=== PATIENT | male | born 1980 | race Caucasian/White ===

== ENCOUNTER 2018-09-08 07:41 | Observation (INO) | payer BC, SELFPAY ==
[2018-09-08] MEDS ORDERED: Ketorolac Tromethamine 30 MG/ML VIAL ONE (08:54)
[2018-09-08] MEDS ORDERED: Levofloxacin 500 mg/D5W 100 ml Premix Bag ONE (08:54)
--- NOTE | 2018-09-08 09:36 | HP ---
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 He has type 1 diabetes since he was 5 years old. He has had 2 episodes of pancreatitis in the past, not obtaining ultrasound. On this occasion, presented to [facility] after 2 days of abdominal pain, back radiation. Pain is epigastric. His white count was 8 and hemoglobin 14. Sodium 138, potassium 3.9, BUN 8, creatinine 0.5, bilirubin 2.5. ALT and AST were normal. Lipase 1289. He presents for evaluation, transferred from [facility] this morning. ALLERGIES: NONE. SOCIAL HISTORY: Tobacco, none. Alcohol, rarely. The patient is single, lives alone. Works at [employer] MEDICATIONS: Insulin Lantus 30 units a.m. and sliding scale insulin through the day. PAST SURGICAL HISTORY: ORIF leg. REVIEW OF SYSTEMS: Ten-point noncontributory. PHYSICAL EXAMINATION: VITAL SIGNS: Weight 175 pounds, BMI 21, temperature 98.1 degrees, heart rate 96, respiratory rate 17, and blood pressure 136/94. HEENT: Unremarkable. Sclerae nonicteric. LUNGS: Clear to auscultation. CARDIAC: Regular rate and rhythm without murmur or gallop. ABDOMEN: Soft. Tenderness in right upper quadrant and epigastrium. Mild guarding. EXTREMITIES: Unremarkable. ASSESSMENT/PLAN: 1. Biliary pancreatitis. Recommend laparoscopic video cholecystectomy and cholangiograms. I have talked to him about the possibility of positive cholangiogram that he might need ERCP, sphincterotomy and stone extraction with Dr. Harish Cain who was on-call. I talked to Dr. Harish Cain about him. I think it is unlikely that he will have choledocholithiasis. I have appraised him for the risk of laparoscopic cholecystectomy, ERCP, infection, bleeding, reoperation, perforation of the intestines, pancreatitis, and chronic pain. He consents. 2. Type 1 diabetes mellitus. Job ID: [id number]
[2018-09-08] MEDS ORDERED: Iothalamate Meglumine 60% 50 ML VIAL FS ONE (09:55)
[2018-09-08] MEDS ORDERED: Bupivacaine HCl 0.5%/Epinephrine 1:200,000/PF 30 ml Vial ONE (09:55)
[2018-09-08 09:58] LABS: Hemoglobin A1c 7.1 % (4.0-6.0)
[2018-09-08] MEDS ORDERED: Fentanyl 100 MCG/2 ML VIAL ONE ×4 (10:01→11:41)
[2018-09-08 10:08] LABS: ALT (SGPT) 13 U/L (8-55); AST (SGOT) 16 U/L (5-34); Albumin 3.2 g/dL (3.5-5.0); Alkaline Phosphatase 57 U/L (40-150); Bilirubin, Direct 0.8 mg/dL (0.1-0.3); Bilirubin, Total 2.7 mg/dL (0.2-1.2); Lipase 142 U/L (8-78); Protein, Total 5.7 g/dL (6.0-8.3)
--- NOTE | 2018-09-08 11:50 | RAD ---
OPERATIVE CHOLANGIOGRAM 1 VIEW: HISTORY: Intraoperative film. FINDINGS: These show filling of a nondilated common duct without signs of any filling defects. IMPRESSION: Unremarkable operative cholangiogram. POS: [facility]
[2018-09-08] MEDS ORDERED: Promethazine HCl 25 MG/ML VIAL ONE (12:08)
[2018-09-08] MEDS ORDERED: Ondansetron PF 4 MG/2 ML Vial IVP PRN (12:12)
[2018-09-08] MEDS ORDERED: Ondansetron ODT 4 MG TAB PO PRN (12:12)
[2018-09-08] MEDS ORDERED: Dextrose 5% in Water 1,000 ML IV PRN (12:12)
[2018-09-08] MEDS ORDERED: HumaLOG 300 UNITS/3 ML VIAL SC PRN (12:12)
[2018-09-08] MEDS ORDERED: Dextrose 50% Abboject 50 ML SYRINGE SLOW IVP PRN (12:12)
[2018-09-08 12:26] LABS: Syphilis Antibody Nonreactive (Nonreactive); Syphilis Antibody Index 0.04 S/CO (<1.00 Non-Reactive)
[2018-09-08] MEDS ORDERED: Fentanyl 100 MCG/2 ML VIAL SLOW IVP PRN (12:26)
[2018-09-08] MEDS ORDERED: Ibuprofen 600 MG TAB PO PRN (12:26)
[2018-09-08] MEDS ORDERED: Ketorolac Tromethamine 30 MG/ML VIAL IVP PRN (12:26)
[2018-09-08] MEDS ORDERED: traMADol HCl 50 MG TAB PO PRN (12:26)
[2018-09-08] MEDS ORDERED: Acetaminophen 1,000 MG in Premix Bag 1 BAG IVPB PRN (12:26)
[2018-09-08 12:29] LABS: HBSAB Concentration 2.61 mIU/mL; HIV (1/2) Antibody/Antigen Non-Reactive (NonReactive); Hep A IgM AB Non-Reactive (NonReactive); Hep A IgM S/CO 0.15 S/CO (0-0.79); Hep B Core Total Ab Non-Reactive (NonReactive); Hep B Core Total Index 0.09 S/CO (0-0.79); Hep B Surf AB Non-Reactive (NonReactive); Hep B Surf Ag Non-Reactive S/CO (NonReactive); Hep C IgG Ab Non-Reactive (NonReactive); Hep C Index 0.11 S/CO (0-0.79)
--- NOTE | 2018-09-08 13:02 | OP ---
DATE OF PROCEDURE: 09/08/2018 PREOPERATIVE DIAGNOSES: Cholecystitis, cholelithiasis, biliary pancreatitis. Note, lipase elevated to 1200; [facility], down to less than 100. [facility], bilirubin 2.4; [facility] 2.7. [facility], transaminase is normal. PROCEDURE PERFORMED: Laparoscopic video cholecystectomy, negative intraoperative cholangiogram using fluoroscopy. ANESTHESIA: General, local 0.5% Marcaine with epinephrine 30 mL. Note, surgeon sustained right index finger needlestick and protocol followed with patient blood draw and surgeon blood draw. Needlestick sustained due to safety apparatus on 22-gauge needles, where the needle protruded through the plastic safety apparatus predisposing to medical personnel injury. DESCRIPTION OF PROCEDURE: The patient was taken to the operating room, where under general anesthesia, abdomen was clipped of hair, prepared with ChloraPrep and draped in routine fashion. Local anesthetic was infiltrated in the skin and subcutaneous tissue about each port site. Infraumbilical incision was made. Pneumoperitoneum to 15 mmHg was obtained with a Veress needle, replaced with a 5 port. Right subxiphoid incision was made and 11 port placed, right subcostal incision was made, midclavicular entrance line, and 5 port was placed. Liver appeared to be normal. Fundus of the gallbladder was grasped at retracted cephalad. Gallbladder slightly distended, wall edematous. There was slight amount of free fluid, and the abdominal cavity aspirated. Infundibulum grasped and reflected laterally. Cystic artery and duct were dissected free. Critical view obtained. Cystic artery doubly clipped proximally. Cystic duct singly clipped on the gallbladder side. Opening was made in the cystic duct. Cholangiocatheter was inserted. Obtained cholangiograms using contrast after administration of glucagon intravenously by Anesthesia. Fluoroscopy revealed free flow of contrast. The duodenum without filling defects in the small caliber, common hepatic, and common bile duct, left and right hepatic ducts. Cholangiocatheter removed. Cystic duct doubly clipped and our cystic artery and duct divided. Gallbladder dissected free from liver bed obtaining good hemostasis prior to division of the final peritoneal attachments. Gallbladder and contents were removed, submitted to Pathology. Good hemostasis noted. Irrigant and pneumoperitoneum were evacuated. All instruments were removed. All skin incisions were approximated with interrupted subdermal 4-0 Monocryl and [place] glue applied. Job ID: [id number]
[2018-09-08] MEDS ORDERED: Morphine 4 MG/ML VIAL ONE (15:20)
[2018-09-08] MEDS ORDERED: PROPOFOL 200 MG/20 ML VIAL ONE (15:30)
[2018-09-08] MEDS ORDERED: Succinylcholine Chloride 20 MG/ML 10 ml SYRINGE FS ONE (15:30)
[2018-09-08] MEDS ORDERED: PHENYLEPHRINE-NS 100 MCG/ML 10 ML SYRINGE ONE (15:30)
[2018-09-08] MEDS ORDERED: Ondansetron PF 4 MG/2 ML Vial ONE (15:30)
[2018-09-08] MEDS ORDERED: Lidocaine 1% PF 5 ML VIAL ONE (15:30)
[2018-09-08] MEDS ORDERED: Rocuronium Bromide 10 MG/ML (10ML VIAL) ONE (15:30)
[2018-09-08] MEDS ORDERED: Glycopyrrolate 0.2 MG/ML 5 ML SYRINGE ONE (15:30)
[2018-09-08] MEDS ORDERED: Morphine 2 MG/ML SYRINGE ONE ×3 (15:44→17:02)
[2018-09-08] MEDS: Lactated Ringer's 1,000 ML IV SCH (18:29)
[2018-09-08 18:41] VITALS: BMI 22.4
[2018-09-08] MEDS: traMADol HCl 50 MG TAB PO PRN (20:52)
[2018-09-08] MEDS: Acetaminophen 500 MG TAB PO PRN (20:53)
[2018-09-08] MEDS: Famotidine 20 MG TAB PO SCH (20:54)
[2018-09-08] MEDS ORDERED: Enoxaparin Sodium 40 MG/0.4 ML SYRINGE SC SCH (21:00)
[2018-09-09] MEDS: traMADol HCl 50 MG TAB PO PRN ×2 (02:22→10:09)
[2018-09-09] MEDS: Acetaminophen 500 MG TAB PO PRN (02:22)
[2018-09-09] MEDS: Lactated Ringer's 1,000 ML IV SCH ×2 (02:23→18:10)
[2018-09-09 05:19] LABS: #Basophils 0.1 thou/uL (0.0-0.2); #Eosinphils 0.2 thou/uL (0.0-0.7); #Lymphocytes 1.4 thou/uL (1.20-3.40); #Monocytes 0.6 thou/uL (0.11-0.59); #Neutrophils 5.2 thou/uL (1.40-6.50); %Basophils 0.8 % (0.0-1.0); %Eosinophils 2.5 % (0.0-10.0); %Lymphocytes 18.8 % (21.0-51.0); %Monocytes 8.2 % (0.0-10.0); %Neutrophils 69.7 % (42.0-75.0); Hemoglobin 13.5 g/dL (14.0-18.0); Mean Corpuscular HGB CONC 35.9 g/dL (32.0-36.0); Mean Corpuscular Hemoglobin 35.4 pg (27.0-31.0); Mean Corpuscular Volume 98.8 fL (78.0-98.0); Mean Platelet Volume 6.6 fL (7.4-10.4); Platelet Count 275 thou/uL (130-400); Red Blood Cell (RBC) Count 3.82 mill/uL (4.70-6.10); White Blood Cell (WBC) Count 7.4 thou/uL (4.8-10.8)
[2018-09-09 05:43] LABS: ALT (SGPT) 68 U/L (8-55); AST (SGOT) 138 U/L (5-34); Albumin 3.2 g/dL (3.5-5.0); Alkaline Phosphatase 174 U/L (40-150); Bilirubin, Direct 0.7 mg/dL (0.1-0.3); Bilirubin, Total 3.5 mg/dL (0.2-1.2); Lipase 102 U/L (8-78); Protein, Total 5.7 g/dL (6.0-8.3)
[2018-09-09] MEDS ORDERED: Insulin Glargine 30 UNITS in Pre-Filled Syringe 1 EACH SC SCH (09:00)
[2018-09-09] MEDS: Famotidine 20 MG TAB PO SCH (09:43)
[2018-09-09 10:14] VITALS: BP 116/73; TEMP 98.1
== END 2018-09-09 10:15 | disposition home or self-care (01) ==
LOC: SDC 07:41 → SJJU 16:28
PROVIDERS: ADMIT Specialist; ATTEND Specialist
PROC: 0FT44ZZ Resection of Gallbladder, Percutaneous Endoscopic Approach (ICD-10-PCS; principal; 2018-09-08)
PROC: BF131ZZ Fluoroscopy of Gallbladder and Bile Ducts using Low Osmolar Contrast (ICD-10-PCS; 2018-09-08)
DX: K80.10 Calculus of gallbladder with chronic cholecystitis without obstruction (principal); E10.9 Type 1 diabetes mellitus without complications; F17.290 Nicotine dependence, other tobacco product, uncomplicated; Z79.4 Long term (current) use of insulin
CPT/HCPCS: 36415; 36416; 47532; 80076; 83036; 83690; 85025; 86704; 86706; 86709; 86780; 86803; 87340; 87389; 88304; 96360; 96361; 96372; G0378; J0131; J0670; J1610; J1650; J1825; J1885; J1956; J2001; J2270; J2405; J2550; J2704; J3010; Q9961

== ENCOUNTER 2021-10-08 08:47 | Inpatient (IN) | payer BC ==
[2021-10-08 10:15] VITALS: BMI 20.7
[2021-10-08] MEDS ORDERED: Dextrose 50% Abboject 50 ML SYRINGE ONE (10:22)
[2021-10-08] MEDS ORDERED: Dextrose 5% in Water 1,000 ML IV PRN ×2 (11:01→11:37)
[2021-10-08] MEDS ORDERED: Dextrose 50% Abboject 50 ML SYRINGE SLOW IVP PRN ×2 (11:01→11:37)
[2021-10-08] MEDS ORDERED: Lorazepam 1 MG TAB PO PRN (11:37)
[2021-10-08] MEDS ORDERED: Ondansetron ODT 4 MG TAB PO PRN ×2 (11:37)
[2021-10-08] MEDS ORDERED: HYDROcodone/Acetaminophen 5/325 mg Tablet PO PRN (11:37)
[2021-10-08] MEDS ORDERED: Acetaminophen 325 MG TAB PO PRN (11:37)
[2021-10-08] MEDS ORDERED: Lorazepam 2 MG/ML VIAL IM PRN (11:37)
[2021-10-08] MEDS ORDERED: Electrolyte Replacement Protocol 1 EACH FS PRN (11:45)
[2021-10-08] MEDS ORDERED: Sodium Chloride 0.9% 1,000 ML IV SCH (12:00)
[2021-10-08] MEDS ORDERED: Ondansetron PF 4 MG/2 ML Vial ONE (12:07)
[2021-10-08] MEDS ORDERED: Lidocaine 1% PF 5 ML VIAL ONE (12:07)
[2021-10-08] MEDS ORDERED: PHENYLEPHRINE-NS 100 MCG/ML 10 ML SYRINGE ONE (12:07)
[2021-10-08] MEDS ORDERED: PROPOFOL 200 MG/20 ML VIAL ONE (12:07)
[2021-10-08] MEDS: Thiamine HCl 200 MG/2 ML VIAL SLOW IVP SCH (12:09)
[2021-10-08 12:13] LABS: #Eosinphils 0.1 thou/uL (0.0-0.7); #Lymphocytes 1.1 thou/uL (1.20-3.40); #Monocytes 0.9 thou/uL (0.11-0.59); #Neutrophils 9.9 thou/uL (1.40-6.50); %Basophils 0.4 % (0.0-1.0); %Eosinophils 1.1 % (0.0-10.0); %Lymphocytes 9.2 % (21.0-51.0); %Monocytes 7.1 % (0.0-10.0); %Neutrophils 82.2 % (42.0-75.0); Hemoglobin 11.8 g/dL (14.0-18.0); Mean Corpuscular Hemoglobin 35.1 pg (27.0-31.0); Mean Platelet Volume 5.9 fL (7.4-10.4); Platelet Count 324 thou/uL (130-400); RBC Distribution Width 10.3 % (11.5-14.5); Red Blood Cell (RBC) Count 3.36 mill/uL (4.70-6.10)
[2021-10-08 12:34] LABS: ALT (SGPT) 37 U/L (8-55); AST (SGOT) 80 U/L (5-34); Albumin 2.7 g/dL (3.5-5.0); Alkaline Phosphatase 96 U/L (40-110); Anion Gap 11 mmol/L (10-20); BUN (Urea Nitrogen) 6 mg/dL (8.9-20.6); Calc. Creatinine Clearance 143 mL/min (70-130); Calcium 8.3 mg/dL (7.8-10.44); Carbon Dioxide 26 mmol/L (22-29); Chloride 105 mmol/L (98-107); Globulin 3.2 g/dL (2.4-3.5); Glucose 135 mg/dL (70-105); Potassium 3.6 mmol/L (3.5-5.1); Protein, Total 5.9 g/dL (6.0-8.3); Sodium 138 mmol/L (136-145)
[2021-10-08 12:47] LABS: Lactic Acid 0.7 mmol/L (0.5-2.2)
[2021-10-08] MEDS ORDERED: Cefepime 2 GM in Sodium Chloride 0.9% 100 ML IVPB SCH (13:00)
[2021-10-08 13:30] LABS: Magnesium 1.6 mg/dL (1.6-2.6); Phosphorus 3.2 mg/dL (2.3-4.7)
[2021-10-08] MEDS ORDERED: VANCOMYCIN 2 GRAM/500 ML BAG 2 GM in Premix Bag 1 BAG IVPB SCH (14:00)
[2021-10-08] MEDS ORDERED: Midazolam HCl 2 mg/2 ml Vial ONE (14:49)
[2021-10-08] MEDS ORDERED: Dexmedetomidine 200 MCG/2 ML VIAL ONE (14:50)
[2021-10-08] MEDS ORDERED: Fentanyl 100 MCG/2 ML VIAL ONE (14:50)
[2021-10-08] MEDS ORDERED: Promethazine HCl 25 MG/ML VIAL IM PRN (16:01)
[2021-10-08] MEDS ORDERED: Promethazine HCl 25 MG/ML VIAL IVPB PRN (16:01)
[2021-10-08] MEDS ORDERED: HYDROmorphone 2 MG/ML VIAL SLOW IVP PRN (16:01)
[2021-10-08] MEDS ORDERED: PACU-Morphine 4MG/ML VIAL SLOW IVP PRN (16:01)
[2021-10-08] MEDS ORDERED: Ondansetron HCl/PF 4 MG/2 ML Vial IVP PRN (16:01)
[2021-10-08] MEDS ORDERED: Morphine Sulfate 2 MG/ML SYRINGE SLOW IVP PRN (16:01)
[2021-10-08] MEDS ORDERED: Meperidine HCl/PF 25 MG/ML VIAL SLOW IVP PRN (16:01)
[2021-10-08] MEDS: chlordiazePOXIDE HCl 25 MG CAP PO SCH ×2 (16:43→20:07)
[2021-10-08] MEDS: Cefepime 2 GM in Sodium Chloride 0.9% 100 ML IVPB SCH (17:15)
[2021-10-08] MEDS: VANCOMYCIN 2 GRAM/500 ML BAG 2 GM in Premix Bag 1 BAG IVPB SCH (17:54)
[2021-10-08] MEDS: Atorvastatin Calcium 10 MG TAB PO SCH (20:07)
[2021-10-08] MEDS: traMADol HCl 50 MG TAB PO PRN (20:11)
[2021-10-08] MEDS ORDERED: Non-Formulary Item 1 EACH (Insulin Aspart [Novolog] 100 UNIT/ML Vial) SQ SCH (21:00)
[2021-10-08] MEDS ORDERED: Vancomycin 1 GM in Premix Bag 1 BAG IVPB SCH (21:00)
[2021-10-09] MEDS ORDERED: Magnesium 2 GM/50 ML(in water) 2 GM in Premix Bag 1 BAG IVPB SCH (00:30)
[2021-10-09] MEDS: Cefepime 2 GM in Sodium Chloride 0.9% 100 ML IVPB SCH ×2 (04:04→18:00)
[2021-10-09] MEDS: HumaLOG 300 UNITS/3 ML VIAL SC PRN ×3 (04:05→18:03)
[2021-10-09] MEDS: VANCOMYCIN 2 GRAM/500 ML BAG 2 GM in Premix Bag 1 BAG IVPB SCH ×2 (04:34→18:44)
[2021-10-09] MEDS: traMADol HCl 50 MG TAB PO PRN ×3 (05:29→13:21)
[2021-10-09] MEDS: Multivit, Therapeutic 1 TAB PO SCH (08:30)
[2021-10-09] MEDS: chlordiazePOXIDE HCl 25 MG CAP PO SCH ×3 (08:30→19:53)
[2021-10-09] MEDS: Folic Acid 1 MG TAB PO SCH (08:30)
[2021-10-09] MEDS: Insulin Glargine 30 UNITS/0.3 ML VIAL SC SCH (08:30)
[2021-10-09] MEDS: Morphine 2 MG/ML VIAL SLOW IVP PRN ×3 (10:13→19:53)
[2021-10-09] MEDS ORDERED: Lorazepam 1 MG TAB PO PRN (11:38)
[2021-10-09] MEDS: Thiamine HCl 200 MG/2 ML VIAL SLOW IVP SCH (11:43)
[2021-10-09] MEDS: Atorvastatin Calcium 10 MG TAB PO SCH (19:53)
[2021-10-10] MEDS: Morphine 2 MG/ML VIAL SLOW IVP PRN ×4 (03:01→20:36)
[2021-10-10] MEDS: Cefepime 2 GM in Sodium Chloride 0.9% 100 ML IVPB SCH ×2 (04:41→17:17)
[2021-10-10 05:21] LABS: Vancomycin, Trough 19.8 ug/mL
[2021-10-10] MEDS: VANCOMYCIN 2 GRAM/500 ML BAG 2 GM in Premix Bag 1 BAG IVPB SCH ×2 (06:07→17:53)
[2021-10-10] MEDS: Folic Acid 1 MG TAB PO SCH (09:57)
[2021-10-10] MEDS: chlordiazePOXIDE HCl 25 MG CAP PO SCH ×3 (09:57→20:38)
[2021-10-10] MEDS: Insulin Glargine 30 UNITS/0.3 ML VIAL SC SCH (09:57)
[2021-10-10] MEDS: Multivit, Therapeutic 1 TAB PO SCH (09:57)
[2021-10-10] MEDS: HumaLOG 300 UNITS/3 ML VIAL SC PRN ×3 (12:41→20:43)
[2021-10-10] MEDS: Thiamine HCl 200 MG/2 ML VIAL SLOW IVP SCH (12:41)
[2021-10-10] MEDS: Acetaminophen 500 MG TAB PO PRN (15:37)
[2021-10-10] MEDS: Atorvastatin Calcium 10 MG TAB PO SCH (20:38)
[2021-10-10] MEDS: Lorazepam 1 MG TAB PO PRN (23:26)
[2021-10-11] MEDS: Morphine 2 MG/ML VIAL SLOW IVP PRN ×5 (00:43→20:04)
[2021-10-11] MEDS: traMADol HCl 50 MG TAB PO PRN ×2 (03:48→08:24)
[2021-10-11] MEDS ORDERED: Cefepime 2 GM in Sodium Chloride 0.9% 100 ML IVPB SCH (05:00)
[2021-10-11] MEDS: HumaLOG 300 UNITS/3 ML VIAL SC PRN ×2 (05:06→12:29)
[2021-10-11] MEDS: Cefepime 2 GM in Sodium Chloride 0.9% 100 ML IVPB SCH ×2 (05:25→15:53)
[2021-10-11] MEDS: VANCOMYCIN 2 GRAM/500 ML BAG 2 GM in Premix Bag 1 BAG IVPB SCH (06:38)
[2021-10-11] MEDS: Acetaminophen 500 MG TAB PO PRN ×2 (06:45→15:48)
[2021-10-11] MEDS: chlordiazePOXIDE HCl 25 MG CAP PO SCH ×3 (08:24→20:04)
[2021-10-11] MEDS: Folic Acid 1 MG TAB PO SCH (08:25)
[2021-10-11] MEDS: Insulin Glargine 30 UNITS/0.3 ML VIAL SC SCH (08:25)
[2021-10-11] MEDS: Multivit, Therapeutic 1 TAB PO SCH (08:25)
[2021-10-11] MEDS: Thiamine 100 MG TAB PO SCH (12:29)
[2021-10-11 17:26] LABS: Vancomycin, Trough 21.6 ug/mL
[2021-10-11] MEDS: VANCOMYCIN 1.75 GM/500 ML BAG 1.75 GM in Premix Bag 1 BAG IVPB SCH (18:09)
[2021-10-11] MEDS: Atorvastatin Calcium 10 MG TAB PO SCH (20:04)
[2021-10-12] MEDS: Lorazepam 1 MG TAB PO PRN ×2 (00:06→18:07)
[2021-10-12] MEDS: Morphine 2 MG/ML VIAL SLOW IVP PRN ×5 (00:10→20:13)
[2021-10-12] MEDS: Acetaminophen 500 MG TAB PO PRN ×3 (01:41→18:06)
[2021-10-12] MEDS: Cefepime 2 GM in Sodium Chloride 0.9% 100 ML IVPB SCH (04:19)
[2021-10-12] MEDS: VANCOMYCIN 1.75 GM/500 ML BAG 1.75 GM in Premix Bag 1 BAG IVPB SCH (05:00)
[2021-10-12] MEDS: Folic Acid 1 MG TAB PO SCH (08:18)
[2021-10-12] MEDS: chlordiazePOXIDE HCl 25 MG CAP PO SCH ×3 (08:18→20:11)
[2021-10-12] MEDS: Multivit, Therapeutic 1 TAB PO SCH (08:18)
[2021-10-12] MEDS: Insulin Glargine 30 UNITS/0.3 ML VIAL SC SCH (08:19)
[2021-10-12] MEDS ORDERED: Doxycycline 100 MG CAP PO SCH (09:00)
[2021-10-12] MEDS: Thiamine 100 MG TAB PO SCH (11:47)
[2021-10-12] MEDS: cefTRIAXone\\ROCEPHIN 1 GM in Sodium Chloride 0.9% 100 ML IVPB SCH (15:20)
[2021-10-12] MEDS: Atorvastatin Calcium 10 MG TAB PO SCH (20:11)
[2021-10-12] MEDS: HumaLOG 300 UNITS/3 ML VIAL SC PRN (20:11)
[2021-10-13] MEDS: Morphine 2 MG/ML VIAL SLOW IVP PRN ×3 (03:44→14:04)
[2021-10-13] MEDS: HumaLOG 300 UNITS/3 ML VIAL SC PRN ×2 (03:47→16:33)
[2021-10-13] MEDS: Acetaminophen 500 MG TAB PO PRN ×2 (05:34→14:16)
[2021-10-13] MEDS: Lorazepam 1 MG TAB PO PRN (05:38)
[2021-10-13] MEDS: Folic Acid 1 MG TAB PO SCH (08:48)
[2021-10-13] MEDS: Multivit, Therapeutic 1 TAB PO SCH (08:48)
[2021-10-13] MEDS: chlordiazePOXIDE HCl 25 MG CAP PO SCH ×2 (08:48→14:16)
[2021-10-13] MEDS: Insulin Glargine 30 UNITS/0.3 ML VIAL SC SCH (09:27)
[2021-10-13] MEDS: cefTRIAXone\\ROCEPHIN 1 GM in Sodium Chloride 0.9% 100 ML IVPB SCH (14:05)
[2021-10-13] MEDS: Thiamine 100 MG TAB PO SCH (14:05)
[2021-10-13] MEDS ORDERED: HYDROcodone/Acetaminophen 10/325 mg Tablet PO PRN (15:00)
[2021-10-13 17:12] VITALS: BP 159/94; TEMP 97.5
== END 2021-10-13 17:25 | disposition home or self-care (01) | DRG 854 ==
LOC: T4-A 09:50 → OBSVTOIN 10-09 12:07
PROVIDERS: ADMIT Internal Medicine; ATTEND Internal Medicine
PROC: 0Y6Q0Z1 Detachment at Left 1st Toe, High, Open Approach (ICD-10-PCS; principal; 2021-10-08)
PROC: 3E03329 Introduction of Other Anti-infective into Peripheral Vein, Percutaneous Approach (ICD-10-PCS; 2021-10-09)
DX: A41.01 Sepsis due to Methicillin susceptible Staphylococcus aureus (principal); E87.2 Acidosis; N17.9 Acute kidney failure, unspecified; M86.172 Other acute osteomyelitis, left ankle and foot; E10.52 Type 1 diabetes mellitus with diabetic peripheral angiopathy with gangrene; E10.40 Type 1 diabetes mellitus with diabetic neuropathy, unspecified; I10 Essential (primary) hypertension; E10.69 Type 1 diabetes mellitus with other specified complication; L03.032 Cellulitis of left toe; E10.628 Type 1 diabetes mellitus with other skin complications; F10.10 Alcohol abuse, uncomplicated; E10.621 Type 1 diabetes mellitus with foot ulcer; L97.529 Non-pressure chronic ulcer of other part of left foot with unspecified severity; Z89.411 Acquired absence of right great toe; Z79.4 Long term (current) use of insulin; Z79.899 Other long term (current) drug therapy; Z90.49 Acquired absence of other specified parts of digestive tract
CPT/HCPCS: 36415; 36416; 80053; 80202; 83605; 83735; 84100; 85025; 87040; 87070; 87077; 87186; 87205; 88305; 88311; 96365; 96375; 96376; G0378; J0692; J0696; J1815; J2250; J2270; J2405; J2704; J3010; J3370; J3411; J3475; J3490; J7050; J7999